=== PATIENT | female | born 1955 ===

== ENCOUNTER 2024-02-11 17:05 | Emergency (ER) | payer MEDICARE, SELFPAY ==
[2024-02-11 17:29] VITALS: BP 127/79; PULSE 94; RESP 16; TEMP 37.1; O2SAT 98
--- NOTE | 2024-02-11 17:39 | ED.EYEPROB ---
HPI - Eye Problem General Chief complaint: Eye Problems Stated complaint: Right Eye Time Seen by Provider: 02/11/24 17:39 Source: patient Mode of arrival: ambulatory Limitations: no limitations History of Present Illness HPI Narrative: 68 yo F presents with redness to R eye. States that R eye feels dry. Denies trauma. has been blowing nose today from allergies. No vision change. All systems reviewed and negative except as noted above. Related Data Home Medications Medication Instructions Recorded Confirmed aripiprazole 5 mg tablet mg 02/11/24 lorazepam 0.5 mg tablet mg 02/11/24 venlafaxine 150 mg mg PO 02/11/24 capsule,extended release 24 hr Allergies Allergy/AdvReac Type Severity Reaction Status Date / Time No Known Allergies Allergy Verified 02/11/24 17:46 Review of Systems Review of Systems: CONSTITUTIONAL: Denies fever, chills, or sweats. EYES: Denies visual changes. Reports redness right eye. Denies discharge. ENT: Denies rhinorrhea, congestion, sore throat, or otalgia. CARDIOVASCULAR: Denies chest pain, palpitations, or edema. RESPIRATORY: Denies cough or dyspnea. GASTROINTESTINAL: Denies abdominal pain, nausea, vomiting, or diarrhea. GENITOURINARY: Denies dysuria or hematuria. SKIN: Denies rash or itching. MUSCULOSKELETAL: Denies back pain, joint pain, or myalgia. NEUROLOGIC: Denies headache, numbness, or weakness. PSYCHIATRIC: Denies anxiety or depression. All other systems reviewed are negative, except as documented in HPI. PMFSH Comments At time of signature, agree with nursing past medical, surgical, social and family history. There is no relevant family history pertinent to the presenting complaint. Exam Narrative: GENERAL: This is a well-nourished, well-developed patient, in no apparent distress. HEAD: normocephalic, atraumatic. EYES: PERRL. subconjunctival hemorrhage R eye. L eye normal. no drainage bilaterally. Vision is grossly intact. EARS: External ears normal NOSE: External nose normal NECK: Neck supple, non-tender without lymphadenopathy, masses or thyromegaly. CARDIOVASCULAR: Regular rate and rhythm without murmurs, gallops, or rubs. RESPIRATORY: Clear to auscultation. Breath sounds equal bilaterally. No wheezes, rales, or rhonchi. SKIN: warm, Dry, intact with no suspicious lesions or rash, good texture and turgor. NEURO: awake, alert, and oriented to person, place and time. There were no obvious focal neurologic abnormalities. EXTREMITIES: No joint tenderness, effusion, or edema noted. Eyes: Eyes/upper lids images: 1. subconjunctival hemorrhage Course Course Level of Care: Express Care Visit Vital Signs Vital signs: Vital Signs Temperature 37.1 C 02/11/24 17:29 Pulse Rate 94 02/11/24 17:29 Respiratory Rate 16 02/11/24 17:29 Blood Pressure 127/79 02/11/24 17:29 Pulse Oximetry 98 02/11/24 17:29 Temperature 37.1 C 02/11/24 17:29 Pulse Rate 94 02/11/24 17:29 Respiratory Rate 16 02/11/24 17:29 Blood Pressure 127/79 02/11/24 17:29 Pulse Oximetry 98 02/11/24 17:29 reviewed MDM - Eye Problem MDM Narrative Medical decision making narrative: recommend OTC eye moisturizing drops. See call specialist for any worsening of symptoms. Patient is aware of diagnosis, understands and agrees to treatment plan. Anticipatory guidance given. Patient agrees to follow-up as directed and is aware of reasons to seek care at the emergency department. Portions of this record may have been created with voice recognition software Discharge Plan Discharge Clinical Impression: Subconjunctival hemorrhage of right eye Patient Disposition: Home, Self-Care Condition: Stable Instructions: General Patient Instructions Additional Instructions: Purchase an [id number] moisturizing eye drops and use as directed on packaging until symptoms have resolved. For any worsening of your symptoms follow-up with your eye special
== END 2024-02-11 17:53 | disposition home or self-care (01) ==
PROVIDERS: Emergency Provider Nurse Practitioner Family
DX: H11.31 Conjunctival hemorrhage, right eye (principal)
CPT/HCPCS: 99202; G0463